=== PATIENT | female | born 1945 | race Caucasian/White ===

== ENCOUNTER 2018-10-14 11:27 | Emergency (ER) | payer OTHER ==
[~2018-10-14] VITALS: Ht 157.5 cm; Wt 90.7 kg
[2018-10-14] MEDS ORDERED: SYNTHROID50 MCG PO (11:49)
[2018-10-14] MEDS ORDERED: COZAAR100 MG PO (11:49)
== END 2018-10-14 16:26 | disposition home or self-care (01) ==
LOC: ER 11:27
DX: N39.0 Urinary tract infection, site not specified (principal); R30.0 Dysuria; B96.89 Other specified bacterial agents as the cause of diseases classified elsewhere

== ENCOUNTER → 2018-11-13 08:45 | Outpatient (CLI) | payer OTHER | END | disposition home or self-care (01) | LOC: LAB 08:45 | DX: E03.8 Other specified hypothyroidism (principal); I10 Essential (primary) hypertension; E11.9 Type 2 diabetes mellitus without complications; E78.2 Mixed hyperlipidemia; Z12.11 Encounter for screening for malignant neoplasm of colon ==

== ENCOUNTER → 2018-11-13 | Outpatient (CLI) | payer OTHER ==
[~2018-11-13] MED LIST: COZAAR100 MG PO; SYNTHROID50 MCG PO
== END | disposition home or self-care (01) ==
LOC: SONOGRAMA 09:30 → MAMO-SONO 09:45
DX: M19.90 Unspecified osteoarthritis, unspecified site (principal); M46.47 Discitis, unspecified, lumbosacral region; R10.84 Generalized abdominal pain

== ENCOUNTER 2018-11-17 07:55 | Outpatient (CLI) | payer OTHER | END 2018-11-17 15:00 | disposition home or self-care (01) | LOC: LAB 07:55 | DX: E11.9 Type 2 diabetes mellitus without complications (principal); E03.8 Other specified hypothyroidism; I10 Essential (primary) hypertension; E78.2 Mixed hyperlipidemia; Z12.11 Encounter for screening for malignant neoplasm of colon ==